=== PATIENT | female | born 1980 | race Caucasian/White ===

== ENCOUNTER 2018-08-29 13:42 | Outpatient (CLI) | payer OTHER ==
--- NOTE | 2018-08-29 14:29 | MMO ---
Bilateral MAMMO Bilat Screen [facility]. CLINICAL HISTORY: Patient is 37 years old and is seen for screening. The patient has no family history of breast cancer. The patient has no personal history of cancer. The patient has a history of bilateral Breast reduction in 2008 - tissue removal under both arms(axilla). VIEWS: The views performed were: bilateral craniocaudal with tomosynthesis; bilateral mediolateral oblique with tomosynthesis; and bilateral exaggerated craniocaudal with tomosynthesis. MAMMOGRAM FINDINGS: There are scattered fibroglandular densities. There are benign appearing calcifications seen in the left breast. There are no suspicious masses, suspicious calcifications, or new areas of architectural distortion. IMPRESSION: THERE IS NO MAMMOGRAPHIC EVIDENCE OF MALIGNANCY. A ROUTINE FOLLOW-UP MAMMOGRAM AT AGE 39 IS RECOMMENDED. THE RESULTS OF THIS EXAM WERE SENT TO THE PATIENT. ACR BI-RADS Category 2 - Benign finding MAMMOGRAPHY NOTE: 1. A negative mammogram report should not delay a biopsy if a dominant of clinically suspicious mass is present. 2. Approximately 10% to 15% of breast cancers are not detected by mammography. 3. Adenosis and dense breasts may obscure an underlying neoplasm.
--- NOTE | 2018-08-29 14:36 | ULT ---
RIGHT AXILLARY ULTRASOUND: HISTORY: Right axillary pain. The patient had excision of tissue from both axillary regions approximately 8-9 years ago. Asymmetric right axillary pain. TECHNIQUE: Multiplanar, hernández scale, and color Doppler images were obtained in a targeted ultrasound of the right axilla. FINDINGS: No enlarged lymph nodes are seen. No fluid collection is seen. No solid mass is identified. IMPRESSION: Unremarkable exam. POS: [facility]
== END 2018-08-29 13:43 | disposition home or self-care (01) ==
LOC: BICULT 13:42
PROVIDERS: ATTEND Family Medicine
DX: Z12.31 Encounter for screening mammogram for malignant neoplasm of breast (principal); M79.621 Pain in right upper arm
CPT/HCPCS: 76999; 77063; 77067

== ENCOUNTER 2024-12-31 09:35 | Outpatient (CLI) | payer BC | END 2024-12-31 09:36 | disposition home or self-care (01) | LOC: BICULT 09:35 | PROVIDERS: ATTEND Family Medicine | DX: R10.11 Right upper quadrant pain (principal) | CPT/HCPCS: 76700 ==